=== PATIENT | female | born 1980 | race Caucasian/White ===

== ENCOUNTER → 2019-05-19 | Outpatient (CLI) | payer OTHER, SELFPAY ==
[2019-05-19 17:37] LABS: Hematocrit 42.4 % (37-47); Hemoglobin 13.8 g/dL (12.0-15.0); Mean Corp Hgb Conc 32.5 g/dL (32-36); Mean Corpuscular Hgb 31.3 pg (27.0-32.0); Mean Corpuscular Volume 96.1 fL (81-99); Mean Platelet Vol. 10.3 fl (6.2-12.0); Platelet Count 250 K/mm3 (150-450); RBC Distribution Width CV 11.9 % (11.6-14.6); RBC Distribution Width SD 41.5 fl (35.1-43.9); Red Blood Count 4.41 M/mm3 (4.2-5.4); White Blood Count 6.5 K/mm3 (4.4-11.0)
[2019-05-19 17:52] LABS: ALB/GLOB Ratio 1.1 RATIO (0.9-2.4); AST(SGOT) 15 U/L (15-37); Alanine Aminotransfer ALT/SGPT 26 U/L (13-56); Albumin, Serum 4.3 g/dL (3.2-5.0); Alkaline Phosphatase 54 U/L (45-117); Anion Gap 8 (5-15); BUN 17 mg/dL (7-18); BUN/Creat Ratio 18.1 RATIO (10-20); Chloride 102 mmol/L (98-107); Creatinine, Serum 0.94 mg/dL (0.55-1.02); EST Glomerular Filtration Rate 71 mL/min (>60); Est Glom Filt Rate - Afr Amer 86 mL/min (>60); Globulin 3.8 g/dL (2.2-4.2); Glucose 91 mg/dL (74-106); Potassium 3.8 mmol/L (3.5-5.1); Protein, Total 8.1 g/dL (6.4-8.2); Sodium Level 138 mmol/L (136-145)
== END | disposition home or self-care (01) ==
LOC: MFPLAB 15:56
PROVIDERS: Family Provider Family Medicine; PCP Family Medicine; Visit Provider Family Medicine
DX: Z00.00 Encounter for general adult medical examination without abnormal findings (principal)
CPT/HCPCS: 36415; 80053; 85027

== ENCOUNTER → 2020-09-20 13:44 | Outpatient (CLI) | payer OTHER, SELFPAY ==
--- NOTE | 2020-09-20 13:48 | US_ITS ---
STUDY: ULTRASOUND OF THE FEMALE PELVIS - COMPLETE REASON FOR EXAM: Female, 40 years old. RIGHT AND MIDLINE MASS-POSSIBLE FIBROID UT LMP: 08/26/2020 TECHNIQUE: Transabdominal and Transvaginal TECHNICAL QUALITY: Adequate. COMPARISON: None. FINDINGS: The uterus is anteverted and is in a midline position. The uterus measures 16.6 x 9.1 x 9.7 cm. Normal uterine cervix. The endometrium measures 11 mm in thickness, and is hyperechoic. There is no demonstrated endometrial mass. 7.2 cm hypoechoic mass in the posterior body the uterus consistent with an intramural fibroid. Another of 4.4 cm isoechoic mass left side of the uterus consistent with a fibroid. Another 6.4 cm partially cystic mass in the anterior fundus the uterus consistent with a fibroid. Another 6.6 cm isoechoic mass in the posterior fundus the uterus consistent with an intramural fibroid. I.U.D. - The patient does not have an I.U.D. The right ovary is visualized. The right ovary measures 9.3 x 10.8 x 4.0 cm. 4 cm round anechoic mass with increased transmission the right ovary consistent with a corpus luteum cyst. Another 3.7 cm cyst in the right ovary. There is no visualized right adnexal mass or complex lesion. There is normal arterial and normal venous vascularity. The left ovary is visualized. The left ovary measures 3.9 x 3.3 x 3.4 cm. There is no left ovarian cyst or ovarian mass. There is no visualized left adnexal mass or complex lesion. There is normal arterial and normal venous vascularity. There is no fluid in the cul-de-sac. The pre void volume of the bladder was ml. The post void volume of the bladder was ml. Polycystic ovary disease: No. US/Pelvic (Non ) IMPRESSION: 1. Enlarged fibroid uterus. 2. Multiple of the corpus luteum cyst of the right ovary. Follow-up ultrasound is recommended in 6 weeks to document resolution. Electronically Signed: Nathan Post MD at 15:18 EST Tel , Service support ,
--- NOTE | 2020-09-20 14:19 | US_ITS ---
STUDY: ULTRASOUND OF THE FEMALE PELVIS - COMPLETE REASON FOR EXAM: Female, 40 years old. RIGHT AND MIDLINE MASS-POSSIBLE FIBROID UT LMP: 08/26/2020 TECHNIQUE: Transabdominal and Transvaginal TECHNICAL QUALITY: Adequate. COMPARISON: None. FINDINGS: The uterus is anteverted and is in a midline position. The uterus measures 16.6 x 9.1 x 9.7 cm. Normal uterine cervix. The endometrium measures 11 mm in thickness, and is hyperechoic. There is no demonstrated endometrial mass. 7.2 cm hypoechoic mass in the posterior body the uterus consistent with an intramural fibroid. Another of 4.4 cm isoechoic mass left side of the uterus consistent with a fibroid. Another 6.4 cm partially cystic mass in the anterior fundus the uterus consistent with a fibroid. Another 6.6 cm isoechoic mass in the posterior fundus the uterus consistent with an intramural fibroid. I.U.D. - The patient does not have an I.U.D. The right ovary is visualized. The right ovary measures 9.3 x 10.8 x 4.0 cm. 4 cm round anechoic mass with increased transmission the right ovary consistent with a corpus luteum cyst. Another 3.7 cm cyst in the right ovary. There is no visualized right adnexal mass or complex lesion. There is normal arterial and normal venous vascularity. The left ovary is visualized. The left ovary measures 3.9 x 3.3 x 3.4 cm. There is no left ovarian cyst or ovarian mass. There is no visualized left adnexal mass or complex lesion. There is normal arterial and normal venous vascularity. There is no fluid in the cul-de-sac. The pre void volume of the bladder was ml. The post void volume of the bladder was ml. Polycystic ovary disease: No. US/Transvaginal Non- IMPRESSION: 1. Enlarged fibroid uterus. 2. Multiple of the corpus luteum cyst of the right ovary. Follow-up ultrasound is recommended in 6 weeks to document resolution. Electronically Signed: Nathan Post MD at 15:18 EST Tel , Service support ,
== END ==
PROVIDERS: PCP Family Medicine; Referring Provider Family Medicine; Visit Provider Family Medicine
DX: R19.03 Right lower quadrant abdominal swelling, mass and lump (principal)
CPT/HCPCS: 76830; 76856

== ENCOUNTER → 2022-02-23 | Outpatient (CLI) | payer OTHER, SELFPAY ==
[2022-02-28 10:30] LABS: HPV APTIMA, High Risk Negative (Negative)
== END | disposition home or self-care (01) ==
LOC: LABSPEC 16:58
PROVIDERS: PCP Family Medicine; Visit Provider Obstetrics & Gynecology
DX: Z12.4 Encounter for screening for malignant neoplasm of cervix (principal)
CPT/HCPCS: 87624; 88175; G0145

== ENCOUNTER → 2022-03-10 | Outpatient (CLI) | payer OTHER, SELFPAY ==
--- NOTE | 2022-03-10 16:19 | MRI_ITS ---
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 This report was created using [employer] report [employer] technology. CONTRAST: IV 13mL DOTAREM COMPARISON: US Sep 20 2020 2:24pm FINDINGS: LOWER THORAX: Unremarkable. No pleural effusion. LIVER: Unremarkable. Normal morphology. No focal mass. GALLBLADDER AND BILE DUCTS: Unremarkable. No gallstones. No gallbladder distention or wall edema. No intra- or extrahepatic biliary ductal dilation. PANCREAS: Unremarkable. No focal cystic or solid mass. SPLEEN: Unremarkable. Normal size without focal cystic or solid mass. ADRENALS: Unremarkable. No nodules. KIDNEYS AND URETERS: Unremarkable. Normal renal size and position. No hydronephrosis. INTRAPERITONEAL SPACE: Unremarkable. No ascites or other fluid collection. No free air. VASCULATURE: Unremarkable. Abdominal aorta is non-dilated. LYMPH NODES: No enlarged lymph nodes. OTHER FINDINGS: The uterus is enlarged and lobulated containing multiple exophytic lesions. This is consistent for a fibroid uterus. Overall dimension of the a mass which is likely extending from the uterus is 19.6 cm x 10.5cm x 14.2 cm. MRI/MRI Abd WITH and W/O Contrast IMPRESSION: The uterus is enlarged and lobulated containing multiple exophytic lesions. This is consistent for a fibroid uterus. Electronically Signed: Matt Hernandez MD at 19:14 EDT ,
--- NOTE | 2022-03-10 16:19 | MRI_ITS ---
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 This report was created using [employer] report generation technology. CONTRAST: IV 13mL DOTAREM COMPARISON: US Sep 20 2020 2:24pm FINDINGS: APPENDIX: No evidence of acute appendicitis. INTRAPERITONEAL SPACE: Unremarkable. No ascites or other fluid collection. BLADDER: See below. REPRODUCTIVE: Lobulated heterogeneous uterus consistent for fibroid uterus. BONES/JOINTS: There is a multi septated and multicystic lesion in the pelvis between the sacrum and the urinary bladder. This lesion measures 14 x 9 cm. It deviates the uterus superiorly. It has soft tissue and calcifications and fatty components. There is demonstration of septal enhancement and soft tissue enhancement. No suspicious lytic or blastic abnormality. SOFT TISSUES: Unremarkable. No pelvic wall hernia. LYMPH NODES: Unremarkable. No enlarged lymph nodes. MRI/Pelvis W/WO Contrast IMPRESSION: 1. Lobulated heterogeneous uterus consistent for fibroid uterus. 2. Given the patient''s history, The current findings are concerning for recurrence of the patient''s known desmoid tumor. The lesion is seen in the pelvis. However, due to its large size it is displacing the fibroid uterus superiorly and the exact origin of the lesion cannot be discerned. Electronically Signed: Matt Hernandez MD at 19:22 EDT ,
== END | disposition home or self-care (01) ==
LOC: MRI 16:19
PROVIDERS: PCP Family Medicine; Referring Provider Obstetrics & Gynecology; Visit Provider Obstetrics & Gynecology
DX: D25.9 Leiomyoma of uterus, unspecified (principal); R10.2 Pelvic and perineal pain
CPT/HCPCS: 72197; 74183; A9575

== ENCOUNTER → 2022-10-11 | Outpatient (CLI) | payer OTHER, SELFPAY ==
[2022-10-12 17:58] LABS: Carcinoembryonic Antigen < 0.6 ng/mL (0.0-4.7)
== END | disposition home or self-care (01) ==
LOC: MTLAB 10:26
PROVIDERS: PCP Family Medicine; Referring Provider Obstetrics & Gynecology Gynecologic Oncology; Visit Provider Obstetrics & Gynecology Gynecologic Oncology
DX: D39.11 Neoplasm of uncertain behavior of right ovary (principal)
CPT/HCPCS: 36415; 82378

== ENCOUNTER → 2023-04-11 | Outpatient (CLI) | payer OTHER, SELFPAY ==
[2023-04-13 04:07] LABS: Carcinoembryonic Antigen < 0.6 ng/mL (0.0-4.7)
== END | disposition home or self-care (01) ==
LOC: MTLAB 12:42
PROVIDERS: PCP Family Medicine; Referring Provider Obstetrics & Gynecology Gynecologic Oncology; Visit Provider Obstetrics & Gynecology Gynecologic Oncology
DX: D39.10 Neoplasm of uncertain behavior of unspecified ovary (principal)
CPT/HCPCS: 36415; 82378

== ENCOUNTER → 2023-10-12 | Outpatient (CLI) | payer OTHER, SELFPAY ==
[2023-10-13 04:07] LABS: Carcinoembryonic Antigen 0.6 ng/mL (0.0-4.7)
== END | disposition home or self-care (01) ==
LOC: MTLAB 11:06
PROVIDERS: PCP Family Medicine
DX: D39.10 Neoplasm of uncertain behavior of unspecified ovary (principal)
CPT/HCPCS: 36415; 82378

== ENCOUNTER → 2024-04-11 | Outpatient (CLI) | payer OTHER, SELFPAY ==
[2024-04-12 10:42] LABS: Carcinoembryonic Antigen < 0.6 ng/mL (0.0-4.7)
== END | disposition home or self-care (01) ==
LOC: MTLAB 11:24
PROVIDERS: PCP Family Medicine; Referring Provider Nurse Practitioner Gerontology; Visit Provider Nurse Practitioner Gerontology
DX: D39.10 Neoplasm of uncertain behavior of unspecified ovary (principal)
CPT/HCPCS: 36415; 82378

== ENCOUNTER → 2024-10-14 | Outpatient (CLI) | payer OTHER, SELFPAY ==
[2024-10-15 08:09] LABS: Carcinoembryonic Antigen < 0.6 ng/mL (0.0-4.7)
== END | disposition home or self-care (01) ==
LOC: MTLAB 08:35
PROVIDERS: PCP Family Medicine; Referring Provider Nurse Practitioner Gerontology; Visit Provider Nurse Practitioner Gerontology
DX: D39.10 Neoplasm of uncertain behavior of unspecified ovary (principal)
CPT/HCPCS: 36415; 82378

== ENCOUNTER → 2024-12-18 | Outpatient (CLI) | payer OTHER, SELFPAY ==
--- NOTE | 2024-12-18 14:28 | BI_ITS ---
EXAM: SCRN MAMM (CAD)W/OSMAN BILAT DATE: 12/18/2024 CLINICAL HISTORY: F, Age 44 y/o , LOW RISK INITIAL SCREEN Baseline examination. BREAST CANCER RISK ASSESSMENT: Not assessed. TECHNIQUE: Bilateral screening digital breast tomosynthesis with 2D and 3D images. Computer aided detection. COMPARISON: Baseline study. FINDINGS: TISSUE DENSITY: The breast tissue is extremely dense which lowers the sensitivity of mammography. Bilateral Breast Mammographic Findings: There is a 3.6 mm well-defined nodule in the slightly medial inferior aspect of the left breast. Correlation with ultrasound recommended. BI/SCRN MAMM (CAD)W/OSMAN BILAT IMPRESSION: Right Breast: BIRADS 1 NEGATIVE. Left Breast: BIRADS 0 Incomplete: Need additional imaging evaluation and/or marcy or mammograms for comparison.. OVERALL FINAL ASSESSMENT: BIRADS 0 Incomplete: Need additional imaging evaluati on and/or prior mammograms for comparison. RECOMMENDATION: Routine annual follow-up in 1 Year A letter with findings and recommendations will be mailed to the patient. Reading Location: [place] [id number]
== END | disposition home or self-care (01) ==
LOC: OPBI 14:27
PROVIDERS: PCP Family Medicine; Referring Provider Family Medicine; Visit Provider Family Medicine
DX: Z12.31 Encounter for screening mammogram for malignant neoplasm of breast (principal)
CPT/HCPCS: 77063; 77067

== ENCOUNTER → 2024-12-26 | Outpatient (CLI) | payer OTHER, SELFPAY ==
--- NOTE | 2024-12-26 14:09 | US_ITS ---
PROCEDURE: BREAST LIMITED UNILATERAL 12/26/2024 REASON FOR EXAM: 44-year-old female presents for callback from screening mammogram on 12/18/2024. No family history of breast cancer. TECHNIQUE: Targeted left breast ultrasound. COMPARISON: Mammogram 12/18/2024 FINDINGS: Left breast ultrasound was targeted to the lower-inner quadrant. Follow-up examination performed for the mass in the lower inner left breast at middle depth visualized on examination of 12/18/2024. On the present examination, there is a cyst in the left breast at 7 o'clock 5 cm from the nipple, measuring 0.5 x 0.4 x 0.4 cm. This is the likely correlate for the mammographic finding. US/Breast Limited Unilateral IMPRESSION: Impression: Cyst in the left breast at 7 o'clock is benign. Birads: BI-RADS 2: BENIGN. RECOMMEND ANNUAL MAMMOGRAPHIC SCREENING. Reading Location: [id number]
== END | disposition home or self-care (01) ==
LOC: OPUS 14:00
PROVIDERS: PCP Family Medicine; Referring Provider Family Medicine; Visit Provider Family Medicine
DX: N60.02 Solitary cyst of left breast (principal)
CPT/HCPCS: 76642

== ENCOUNTER → 2025-07-13 | Outpatient (CLI) | payer OTHER, SELFPAY ==
[2025-07-13 12:02] LABS: Hematocrit 38.2 % (37-47); Hemoglobin 12.9 g/dL (12.0-15.0); Immature Granulocytes Count 0.010 X10^3/uL (0.0-0.0); Mean Corp Hgb Conc 33.8 g/dL (32-36); Mean Corpuscular Volume 96.0 fL (81-99); Mean Platelet Vol. 9.8 fl (6.2-12.0); NRBC Flagged by Analyzer 0 % (0-5); Platelet Count 233 K/mm3 (150-450); RBC Distribution Width CV 12.0 % (11.6-14.6); RBC Distribution Width SD 42.1 fl (35.1-43.9); Red Blood Count 3.98 M/mm3 (4.2-5.4); White Blood Count 5.4 K/mm3 (4.4-11.0)
[2025-07-13 12:27] LABS: AST(SGOT) 20 U/L (<=31); Alanine Aminotransfer ALT/SGPT 21 U/L (<=34); Albumin, Serum 4.4 g/dL (3.5-5.0); Alkaline Phosphatase 58 U/L (35-104); Anion Gap 10 (5-15); BUN 12 mg/dL (4-19); BUN/Creat Ratio 18.7 RATIO (10-20); Calcium,Total 9.1 mg/dL (7.6-11.0); Carbon Dioxide 25.4 mmol/L (21.0-32.0); Chloride 103 mmol/L (98-108); Globulin 2.8 g/dL (2.2-4.2); Glucose 94 mg/dL (70-99); Potassium 4.1 mmol/L (3.3-5.1)
[2025-07-14 04:07] LABS: Carcinoembryonic Antigen < 0.6 ng/mL (0.0-4.7)
== END | disposition home or self-care (01) ==
LOC: MTLAB 09:52
PROVIDERS: PCP Family Medicine; Referring Provider Family Medicine; Visit Provider Family Medicine
DX: D48.118 Desmoid tumor of other site (principal)
CPT/HCPCS: 36415; 80053; 82378; 85025